=== PATIENT | female | born 1950 | race Asian ===

== ENCOUNTER 2019-03-02 16:58 | Emergency (ER) | payer OTHER ==
[~2019-03-02] VITALS: Ht 170.2 cm; Wt 65.8 kg
[2019-03-02 17:00] VITALS: BP_SYST 196
--- NOTE | 2019-03-02 17:04 | NUR ---
Patient to ER bed 03 to gown for evaluation. Side rails up.
--- NOTE | 2019-03-02 17:05 | NUR ---
Patient arrived in the ED c/o bilateral low back pain that is worse on the left that started a week ago. Denied any recent falls or trauma. Denied any fevers or chills. Patient is alert and oriented x4, respirations even and unlabored, speaking in full sentences, ambulating with a wheelchair. VSS, pain level 10/10. Informed of the wait time. Instructed to notify ED staff for any change in condition or worsening of symptoms. Patient verbalized understanding.
--- NOTE | 2019-03-02 17:10 | NUR ---
EARL Moreland at bedside examining patient.
[2019-03-02] MEDS ORDERED: IBUPROFEN 600 MG TABLET PO ONE (17:30)
[2019-03-02] MEDS ORDERED: HYDROcodone/ACETAMIN 5-325 MG TAB (NORCO/ VICODIN) PO ONE (17:30)
[2019-03-02] MEDS ORDERED: ONDANSETRON 4 MG ODT TAB PO ONE (17:30)
--- NOTE | 2019-03-02 17:50 | NUR ---
Urine specimen collected as ordered by Clemente PLATA). Dropped off at the lab.
--- NOTE | 2019-03-02 18:41 | NUR ---
Patient given written and verbal discharge instructions and verbalizes understanding. ER MD discussed with patient the results and treatment provided. Patient in stable condition. ID arm band removed. Rx of Ibuprofen given. Patient educated on pain management and to follow up with PMD. Pain Scale 0/10. Opportunity for questions provided and answered. Medication side effect fact sheet provided.
[2019-03-02 18:43] VITALS: BP_SYST 162
== END 2019-03-02 18:43 | disposition home or self-care (01) ==
LOC: SED 16:58
DX: S39.012A Strain of muscle, fascia and tendon of lower back, initial encounter (principal); M51.36 Other intervertebral disc degeneration, lumbar region; I10 Essential (primary) hypertension; E11.9 Type 2 diabetes mellitus without complications; Z90.710 Acquired absence of both cervix and uterus; X50.1XXA Overexertion from prolonged static or awkward postures, initial encounter; Y93.89 Activity, other specified; Y92.89 Other specified places as the place of occurrence of the external cause; Y99.8 Other external cause status
CPT/HCPCS: 72100; 81002; 99284; Q0162

== ENCOUNTER 2023-01-27 01:20 | Emergency (ER) | payer OTHER ==
[~2023-01-27] VITALS: Ht 170.2 cm; Wt 64.4 kg
[2023-01-27 02:01] VITALS: BP_SYST 144; PULSE 83; RESP 17; TEMP 97.7; O2SAT 96
[2023-01-27] MEDS ORDERED: IBUPROFEN 400 MG TABLET PO ONE (04:45)
[2023-01-27] MEDS ORDERED: ACETAMINOPHEN 325 MG TABLET PO ONE (04:45)
[2023-01-27] MEDS ORDERED: AUG875 PO (04:46)
[2023-01-27] MEDS ORDERED: CIPR7.5D LEFT EAR (04:46)
[2023-01-27 05:30] VITALS: BP_SYST 127; PULSE 80; RESP 17; TEMP 97.7; O2SAT 98
== END 2023-01-27 05:19 | disposition home or self-care (01) ==
LOC: SED 01:20
DX: J06.9 Acute upper respiratory infection, unspecified (principal); H66.92 Otitis media, unspecified, left ear; H60.92 Unspecified otitis externa, left ear; R50.9 Fever, unspecified; E11.9 Type 2 diabetes mellitus without complications; I10 Essential (primary) hypertension; Z79.899 Other long term (current) drug therapy
CPT/HCPCS: 99282

== ENCOUNTER 2023-12-21 19:35 | Emergency (ER) | payer OTHER ==
[~2023-12-21] VITALS: Ht 167.6 cm; Wt 63.5 kg
[~2023-12-21 19:35] MED LIST: AUG875 PO; CIPR7.5D LEFT EAR
[2023-12-21 19:45] VITALS: BP_SYST 146; PULSE 81; RESP 20; TEMP 98; O2SAT 98
[2023-12-21 20:40] LABS: BASOPHILS % (AUTO) 0.4 % (0.0-2.0); EOSINOPHILS # (AUTO) 0.2 K/uL (0.0-0.4); EOSINOPHILS % (AUTO) 1.5 % (0.0-4.0); HEMOGLOBIN 14.5 g/dL (12.0-16.0); RED CELL DISTRIBUTION WIDTH 12.7 % (9.0-15.0)
[2023-12-21 20:45] LABS: HEMATOCRIT 43.4 % (36-48); LYMPHOCYTES # (AUTO) 1.7 K/uL (1.0-5.5); LYMPHOCYTES % (AUTO) 14.7 % (20.5-51.5); MEAN CORPUSCULAR HEMOGLOBIN 30 pg (27-31); MEAN CORPUSCULAR HGB CONC 34 % (32-36); MEAN CORPUSCULAR VOLUME 88 fL (79.0-98.0); MONOCYTES # (AUTO) 0.4 K/uL (0.0-1.0); MONOCYTES % (AUTO) 3.4 % (1.7-9.3); NEUTROPHILS # (AUTO) 8.9 K/uL (1.8-7.7); PLATELET COUNT (AUTO) 159 K/uL (130-430); RED BLOOD CELL COUNT(AUTO) 4.93 MIL/uL (4.2-6.2); WHITE BLOOD COUNT (AUTO) 11.2 K/uL (4.8-10.8)
[2023-12-21 20:55] LABS: ALANINE AMINOTRANSFERASE 124 U/L (12-78); ALBUMIN 4.4 g/dL (3.4-4.8); ANION GAP 11 (5-15); ASPARTATE AMINOTRANSFERASE 64 U/L (10-37); CALCIUM 9.2 mg/dL (8.4-11.0); CARBON DIOXIDE 27 mmol/L (23-29); CHLORIDE 104 mmol/L (98-107); CREATININE 0.86 mg/dL (0.55-1.30); GLUCOSE 126 mg/dL (74-106); POTASSIUM 4.7 mmol/L (3.5-5.1); SODIUM SERUM 142 mmol/L (136-145); TOTAL BILIRUBIN 0.7 mg/dL (0.0-1.0); TOTAL PROTEIN, SERUM 8.1 g/dL (6.4-8.3); UREA NITROGEN, BLOOD 15 mg/dL (8-21)
[2023-12-21 20:58] LABS: BILIRUBIN,DIRECT 0.1 mg/dL (0.0-0.3); LIPASE 48 U/L (16-77)
[2023-12-21] MEDS: ONDANSETRON HCL 4 MG/2 ML VIAL IVP ONE (20:58)
[2023-12-21] MEDS: NACL 0.9% 1,000 ML IV ONE (20:59)
[2023-12-21 22:55] LABS: BILIRUBIN,URINE NEGATIVE (NEGATIVE); CLARITY/URINE CLEAR (CLEAR); COLOR,URINE YELLOW (YELLOW); GLUCOSE,URINE NEGATIVE (NEGATIVE); KETONES,URINE 1+ (NEGATIVE); LEUKOCYTE ESTERASE ,URINE NEGATIVE (NEGATIVE); NITRITE, URINE NEGATIVE (NEGATIVE); PROTEIN URINE TRACE (NEGATIVE); UROBILINOGEN,URINE 0.2 (0.2-1.0)
[2023-12-21 23:12] LABS: BLOOD, URINE TRACE (NEGATIVE)
[2023-12-21 23:27] LABS: BACTERIA,URINE None Seen /HPF (None Seen)
[2023-12-21] MEDS ORDERED: ONDA-8 TL (23:48)
[2023-12-22 00:09] VITALS: BP_SYST 129; PULSE 78; RESP 14; TEMP 97.3; O2SAT 94
== END 2023-12-22 00:09 | disposition home or self-care (01) ==
LOC: SED 19:35
DX: A05.9 Bacterial foodborne intoxication, unspecified (principal); R11.2 Nausea with vomiting, unspecified; I10 Essential (primary) hypertension; E11.9 Type 2 diabetes mellitus without complications; E78.5 Hyperlipidemia, unspecified; Z90.710 Acquired absence of both cervix and uterus; Z79.899 Other long term (current) drug therapy; Z79.2 Long term (current) use of antibiotics
CPT/HCPCS: 99285; 96374; 96361; 80076; 80048; 81001; 83690; 85025; 84484; 36415; 93005; 74018; 82948; J2405; J7030; 81000; 81015